=== PATIENT | female | born 1985 | race Caucasian/White ===

== ENCOUNTER 2020-08-23 22:43 | Emergency (ER) | payer OTHER ==
[~2020-08-23] VITALS: Ht 177.8 cm; Wt 69.7 kg
[2020-08-23 22:56] VITALS: BP 119/76
[2020-08-23] MEDS ORDERED: DOXYCYCLINE 100MG CAPSULE PO STA (23:56)
[2020-08-24] MEDS ORDERED: TETanus/Pertussis (Acell)/Diphther VAC/PF (Tdap-Adult) 0.5ml syringe IMVAC ONE
[2020-08-24] MEDS ORDERED: DOXY100C76 PO (00:03)
== END 2020-08-24 01:22 | disposition home or self-care (01) ==
LOC: ER 22:45
DX: S51.832A Puncture wound without foreign body of left forearm, initial encounter (principal); M79.632 Pain in left forearm; Z20.3 Contact with and (suspected) exposure to rabies; Z88.0 Allergy status to penicillin; Z79.2 Long term (current) use of antibiotics; W54.0XXA Bitten by dog, initial encounter; Y93.89 Activity, other specified; Y92.89 Other specified places as the place of occurrence of the external cause; Y99.8 Other external cause status
CPT/HCPCS: 73090; 90471; 90715; 99283